=== PATIENT | female | born 1985 | race Caucasian/White ===

== ENCOUNTER 2019-06-05 04:42 | Inpatient (IN) ==
[2019-06-05 02:49] LABS: Amphetamine Screen,Urine Negative ng/mL (Cutoff=1000); Barbiturate Screen,Urine Negative ng/mL (Cutoff=200); Benzodiazepines Screen,Urine Negative ng/mL (Cutoff=200); Cannabinoid Screen,Urine Negative ng/mL (Cutoff = 50); Cocaine Screen,Urine Negative ng/mL (Cutoff= 300); Opiate Screen,Urine Negative ng/mL (Cutoff=300); Phencyclidine Screen,Urine Negative ng/mL (Cutoff=25)
--- NOTE | 2019-06-05 03:57 | OB/GYN History & Physical ---
Date of Encounter: 06/05/19 Time of Encounter: 03:57 Assessment and Plan (1) 39 weeks gestation of Current visit: Yes Status: Acute (2) Carrier of hemochromatosis HFE gene mutation Current visit: Yes Status: Acute (3) Uterine contractions Current visit: Yes Status: Acute Admit to labor and delivery Nubain and epidural as desired GBS negative Anticipate History of Present Illness Chief complaint: contractions HPI: Ms. Ji is a 33 year old female 39+5 days gestation presents to triage with complaints of contractions. Patient started having contractions last night increasing in and duration. Patient reports good movement, and having bloody show. Denies leaking of fluid. care with Dr. Albarado. Transfer of care at 16 weeks. 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 Labs: O+, rubella immune, GBS negative, all other serologies negative. Past Med Surg Social Fam HX - Past Medical History Medical history: no medical history Psychiatric history: anxiety - Past Surgical History Surgical History: no surgical history - Social History Smoking Status: Never smoker Alcohol use: none Drug use: none - Family History Father Family Member Ethnicity: Non- Living Status: Still Living Hx Family Cardiac Disorders: No Hx Family Respiratory Disorders: Yes (asthma) Hx Family Cancer: No Hx Family GI Disorders: No Hx Family Genitourinary Disorders: No Hx Family Endocrine Disorder: No Hx Family Musculoskeletal Disorders: No Hx Family Neuromuscular Disorders: No Hx Family Neurologic Disorders: No Hx Family HEENT Disorders: No Hx Family Autoimmune Disorders: No Hx Family Reproductive Disorders: No Hx Family Psychosocial Disorders: No Hx Family Medical Disorders: No Obstetrical History - Pregnancies : 1 Para: 0 Term: 0 : 0 Ab's: 0 Livin Medications and Allergies 19 Tablet 06/05/19 [History] Allergy/AdvReac Type Severity Reaction Status Date / Time No Known Allergies Allergy Verified 06/05/19 01:52 Exam - Constitutional Constitutional: well developed, well nourished, no acute distress - Neck Neck exam: full ROM - Lungs Respiratory exam: CTAB - Cardiovascular Cardiovascular exam: RRR - Abdomen Abdomen: Present: gravid, non tender - Cervix Dilation: 3 Results All other labs normal. - VTE Reasons for not Prescribing Prophylaxis: Treatment not Indicated - Low risk for VTE
[2019-06-05] MEDS: Ondansetron 4 MG/2 ML VIAL IVP PRN ×2 (04:12→11:22)
[~2019-06-05 04:42] MED LIST: *HR* Nalbuphine 10 MG/ML AMPUL IVP PRN; Famotidine 20 MG/2 ML VIAL IVP PRN; Lidocaine 1% 20 ML MDV INFILT PRN; Metoclopramide 10 MG/2 ML VIAL IVP PRN; Naloxone 0.4 MG/ML INJ IVP PRN; Ringers Solution, Lactated 1,000 ML IVC SCH
[2019-06-05 05:06] LABS: Basophils % 0.1 %; Hemoglobin 13.4 g/dL (11.5-15.4); Immature Granulocytes % 5.5 % (0-4); Lymphocytes # 2.1 K/mcL (0.6-4.6); Lymphocytes % 9.7 %; Mean Corpuscular HGB Conc 32.7 g/dL (31.6-35.5); Mean Corpuscular Hemoglobin 30.2 pg (28.0-33.3); Mean Corpuscular Volume 92.3 fL (83.0-100.0); Mean Platelet Volume 8.5 fL (9.4-12.4); Monocytes # 1.1 K/mcL (0.0-1.3); Monocytes % 5.1 %; Nucleated Red Blood Cells 0.1 /100 WBC (0); Platelet Count 241 K/mcL (140-400); Red Blood Count 4.44 M/mcL (3.82-4.97); Red Cell Distribution Width 14.8 % (11.5-14.5); Segmented Neutrophils % 79.6 %; White Blood Count 21.4 K/mcL (4.3-11.1)
[2019-06-05 05:29] LABS: Platelet Estimate Normal (Normal)
[2019-06-05 05:30] LABS: Polychromasia 1+ (Not Present)
[2019-06-05] MEDS ORDERED: *HR* FentaNYL (PF) 100 MCG/2 ML VIAL ONE (06:08)
[2019-06-05] MEDS ORDERED: Epidural Premix (fent/bupiv) 110 ML EP ONE (06:08)
--- NOTE | 2019-06-05 06:44 | Anesthesia Evaluation PreOp ---
Date of Encounter: 06/05/19 Time of Encounter: 06:42 - Past History Planned Operation: aly Cardiac History: Denies any Significant Hx Pulmonary History: Denies Any Significant HX RESERVOIR ENGINEERING MANAGER History: Denies Any Significant HX Other Medical History: Denies Any Significant HX Anesthesia History: No Prior Anesthetic Complications, Past Anesthesia : Yes (39wks, g1) Alcohol Use: none Drug use: none Medications and Allergies 19 Tablet 06/05/19 [History] Allergy/AdvReac Type Severity Reaction Status Date / Time No Known Allergies Allergy Verified 06/05/19 01:52 - Meds/Allergy Pre-op Review Medications Reviewed: Yes Allergies Reviewed: Yes Beta Blockers on Current Med List: No Anesthesia Results - Labs 06/05/19 04:51 Anesthesia Exam O2 Sat Height 1.52 m Weight 87.317 kg Height: 60 Weight: 87 - HEENT Pupil (Motor): Pupils equal Mallampati: II Teeth: Normal Oral Opening: Greater than 3 - RESERVOIR ENGINEERING MANAGER LOC: Oriented RESERVOIR ENGINEERING MANAGER Motor: Normal RUE, Normal LUE, Normal RLE, Normal LLE, Normal Face RESERVOIR ENGINEERING MANAGER Sensory: Normal: RUE, LUE, RLE, LLE, Face - Cardiac Rhythm: Regular Murmur: None JVD: No Carotid Bruit: No - Pulmonary Breath Sounds: bilateral Clear Respiratory Effort: Symmetrical Anesthesia Assess/Plan ASA Score: 2 Level of consciousness: Cooperative Anesthetic Plan: Epidural Monitoring Plan: Standard Monitors
[2019-06-05] MEDS ORDERED: Epidural Premix (fent/bupiv) 110 ML EP SCH (06:45)
--- NOTE | 2019-06-05 06:49 | Anesthesia Procedures ---
Date of Encounter: 06/05/19 Time of Encounter: 06:12 ([id number]) Procedures: Anesthesia - Epidural/Spinal Patient ID/Chart reviewed: Yes Patient examined: Yes OB Eval: Gestational age: 39 OB Eval: : 1 OB Eval: Contractions: Non-stressed pattern Consent Obtained: Yes Supplemental Oxygen: None/Room Air Site Prep: Aseptic Technique Patient position: upright Local Anesthetic: Lidocaine 1% Amount of Local Anesthetic used: 2 Touhy Needle Gauge: 18 Touhy Needle Depth (cm): 6 Catheter Depth at Skin (cm): 12 Test Dose (1.5% Lido + Epi): Volume given (mls): 3 Test Dose Result: Negative Loading Dose: Fentanyl (mcg): 100 Loading Dose: Other: 5ml 0.2% ropivicaine Loading Dose Administered: Thru Touhy Needle Infusion Med: 0.125% Bupivacaine w/ 2 mcg/ml Fentanyl Infusion Rate (mls/hr): [address]: Tegaderm Interspace Used: L3-L4 Loss of Resistance (RAYMUNDO): Yes Blood: No CSF: No Paresthesia: No Procedure: Strict asepsis, one attempt wthout any redirections. Good RAYMUNDO at 6cm, bolus through needle, catheter to 12cm. No parasthesias, no heme, no CSF. FHR unchanged.
[2019-06-05] MEDS ORDERED: Famotidine 20 MG/2 ML VIAL IVP STA (08:08)
--- NOTE | 2019-06-05 08:32 | OB Labor Progress Note ---
Date of Encounter: 06/05/19 Time of Encounter: 08:30 Labor Progress Note - Subjective Subjective: Patient resting comfortably after epdiural placement - Vital Signs Vital Signs: WNL - Cervix Cervix: 7/90/-1 - Heart Tones Heart Tones: FHR 120 bpm, moderate variability, +15x15 accels, no decels. - Bacliff Bacliff: 2-4 minutes - Interventions Interventions: SVE AROM for moderate amount of clear fluid. IUPC placed for accurate contraction monitoring. - Plan Physician notified: Yes Physician notified details: Dr. Calhoun aware of SVE Plan: Continue frequent position changes with peanut ball. Begin Pitocin augmentation to maintain MVU's >200 Anticipate
[2019-06-05] MEDS ORDERED: Oxytocin 20 units/ LR 1000 mL 20 UNIT/1,000 ML BAG IVC SCH (08:45)
[2019-06-05] MEDS ORDERED: Ropivacaine/PF 0.2% 20 ML VIAL ONE (16:38)
--- NOTE | 2019-06-05 16:53 | OB Labor Progress Note ---
Date of Encounter: 06/05/19 Time of Encounter: 16:51 Labor Progress Note - Subjective Subjective: Patient is extremely uncomfortable with contractions. - Vital Signs Vital Signs: WNL - Cervix Cervix: 7/90/-2 - Heart Tones Heart Tones: FHR 140 bpm, moderate variability, no accels, early decelerations. - [place]: q 2 min - Interventions Interventions: Epidural bolus given for pain control. - Plan Plan: Continue Pitocin augmentation Anticipate
--- NOTE | 2019-06-05 19:20 | OB Labor Progress Note ---
Date of Encounter: 06/05/19 Time of Encounter: 19:18 Labor Progress Note - Subjective Subjective: Patient comfortable with epidural in place. - Cervix Cervix: 7/90/-1 - Heart Tones Heart Tones: FHR 130 bpm, moderate variability, +15x15 accels, early decels. - Phelps Phelps: Q2-3 min - Interventions Interventions: SVE Position changed to Walcher's. Possible fetus is OP presentation - Plan Plan: Continue Pitocin augmentation Frequent position changes with peanut ball after Walcher's position. Anticipate Discussed option with patient since she has had no cervical change in several hours. She states a would be her absolute last option as long as the baby is tolerating labor.
--- NOTE | 2019-06-05 22:23 | OB Labor Progress Note ---
Date of Encounter: 06/05/19 Time of Encounter: 22:09 Labor Progress Note - Subjective Subjective: Patient resting comfortably in bed. - Cervix Cervix: 7/90/-1 Unchanged from early AM - Heart Tones Heart Tones: 140 bpm, moderate variability, +15x15 accels, occasional late and early decelerations. - [place] Saranap: 3-6 - Interventions Interventions: SVE, multiple position changes attempted. Throughout the day, there have been several episodes of prolonged decelerations. Position change has resolved them each time. Pitocin has needed to be discontinued multiple times because of the decelerations. MVU's had been adequate when Pitocin was running continuously. At this time, patient SVE is unchanged since early this AM. head position feels acynclitic or OP. Dr. Calhoun notified of findings. Discussed option with patient due to arrest of dilation regardless of adequate labor. She and her discussed and agree to proceed with at this time. Dr. Calhoun notified. - Plan Physician notified: Yes Physician notified details: Dr. Calhoun aware of patient request to proceed with due to arrest of dilation. Plan: Stop Pitocin Prepare for section.
[2019-06-05] MEDS ORDERED: CeFAZolin Premix DUPLEX 2,000 MG/50 ML BAG IVPB ONE (22:24)
[2019-06-05] MEDS ORDERED: Lidocaine -MPF 2% 5 ML VIAL ONE (23:27)
[2019-06-05] MEDS ORDERED: *HR* Oxytocin 10 UNIT/ML VIAL IM ONE (23:49)
[2019-06-05] MEDS ORDERED: Ondansetron 4 MG/2 ML VIAL ONE (23:49)
[2019-06-05] MEDS ORDERED: Acetaminophen IV 1,000 MG/100 ML INFUS..BTL IVPB ONE (23:57)
[2019-06-05] MEDS ORDERED: *HR* HYDROmorphone (PF) 1 MG/ML SYRINGE IVP PRN (23:57)
[2019-06-05] MEDS ORDERED: *HR* OxyCODONE Immed Rel 5 MG TABLET PO PRN (23:57)
[2019-06-06] MEDS ORDERED: *HR* Morphine Sulfate/PF 10 MG/10 ML AMPUL ONE (00:04)
[2019-06-06] MEDS ORDERED: Lidocaine -MPF 2% 5 ML VIAL ONE (00:23)
[2019-06-06] MEDS ORDERED: *HR* FentaNYL (PF) 100 MCG/2 ML VIAL ONE (00:24)
--- NOTE | 2019-06-06 00:53 | OB/GYN Procedure Note ---
Section - Date of procedure: 06/06/19 Preop diagnosis: arrest of dilation, category 2 FHT tracing Post-op diagnosis: same Procedure: primary low transverse Surgeon: Joan Barraza Blood Loss: 500 Was there an fws faculty assistant present: Yes Verification Specialist: Callie Paredes Anesthesia Type: Epidural section complications: none Disposition: L&D Recovery Room Specimens: Cord segment, Cord blood - Narrative Narrative: The patient was taken to the operating room where epidural anesthesia was found to be adequate. The patient was prepped and draped in the usual sterile fashion in the dorsal supine position with a left-esteban tilt. A Pfannenstiel skin incision was made with the scalpel and carried through to the underlying layer of fascia. The fascia was incised in the midline and extended laterally. Louisa clamps were used to elevate the superior aspect of the fascial incision, which was elevated, and the underlying rectus muscles were dissected off bluntly and using Sainz scissors. Attention was then turned to the inferior aspect of the fascial incision, which in similar fashion was grasped with Louisa clamps, elevated, and the underlying rectus muscles were dissected off bluntly and using Sainz scissors. The rectus muscles were dissected in the midline. The peritoneum was bluntly dissected, entered, and extended superiorly and inferiorly with good visualization of the bladder. The bladder blade was inserted. The lower uterine segment was incised in a transverse fashion using the scalpel and extended using manual traction. Clear fluid was noted. The infant was subsequently delivered atraumatically. The nose and mouth were bulb suctioned. The cord was clamped and cut. The was subsequently handed to the awaiting nursery nurse. The placenta was removed spontaneously intact with a 3-vessel cord noted. The uterus was exteriorized and cleared of all clots and debris. The uterine incision was repaired in 2 layers using 0 vicryl suture. Hemostasis was visualized. The uterus was returned to the abdomen. The uterine incision was reexamined and was noted to be hemostatic. The fascia was closed with 0 Vicryl, the subcutaneous layer was closed with 3-0 vicryl, and the skin was closed with 4-0 vicryl. Sponge, lap, and instrument counts were correct x2. The patient was stable at the completion of the procedure and was subsequently transferred to the recovery room in stable condition.
[2019-06-06] MEDS ORDERED: *HR* OxyCODONE/APAP 5/325 TABLET PO PRN (03:38)
[2019-06-06] MEDS ORDERED: Sennosides 8.6 MG TABLET PO PRN (03:38)
[2019-06-06] MEDS ORDERED: Simethicone 80 MG TAB.CHEW PO PRN (03:38)
[2019-06-06] MEDS ORDERED: Ondansetron 4 MG/2 ML VIAL IVP PRN (03:38)
[2019-06-06] MEDS ORDERED: Metoclopramide 10 MG/2 ML VIAL IVP PRN (03:38)
[2019-06-06] MEDS ORDERED: Oxytocin 20 units/ LR 1000 mL 20 UNIT/1,000 ML BAG IVC SCH (03:38)
[2019-06-06] MEDS ORDERED: *HR* OxyCODONE Immed Rel 5 MG TABLET PO PRN (03:38)
[2019-06-06] MEDS ORDERED: Ibuprofen 600 MG TABLET PO PRN (03:38)
--- NOTE | 2019-06-06 06:41 | Anesthesia Evaluation Post Op ---
Date of Encounter: 06/06/19 Time of Encounter: 03:00 - Vital Signs Vital Signs: Vital Signs Temperature 98.8 F 06/06/19 03:15 Pulse Rate 108 06/06/19 03:15 Respiratory Rate 14 06/06/19 03:15 Blood Pressure 116/72 06/06/19 03:15 O2 Sat by Pulse Oximetry 96 06/06/19 03:15 Temperature 98.9 F 06/06/19 05:15 Pulse Rate 105 06/06/19 05:15 Respiratory Rate 14 06/06/19 05:15 Blood Pressure 127/80 06/06/19 05:15 O2 Sat by Pulse Oximetry 95 06/06/19 05:15 - Lungs Lungs: Clear Ascult./Percussion - Airway Airway: Non-obstructed - Cardiovascular Regular Rate - Mental Status Mental Status: Alert & Oriented, Answers Appropriately - Pain Pain Scale: 3 Pain Scale used: Numeric (1 - 10) - Nausea Vomiting Nausea Vomiting: Not Present - Hydration Hydration: NPO, Dooley catheter - Discharge PostOp Status: Transfer Patient to floor
[2019-06-06] MEDS: metroNIDAZOLE 500 MG TABLET PO SCH ×3 (08:41→20:14)
[2019-06-06] MEDS: Prenatal Vit/FA 1 EACH TABLET PO SCH (08:41)
[2019-06-06] MEDS: cephALEXin 500 MG CAPSULE PO SCH ×3 (08:41→20:15)
[2019-06-06 08:57] LABS: Hematocrit 33.1 % (35.3-44.9); Mean Corpuscular HGB Conc 32.6 g/dL (31.6-35.5); Mean Corpuscular Hemoglobin 30.2 pg (28.0-33.3); Mean Corpuscular Volume 92.5 fL (83.0-100.0); Mean Platelet Volume 8.4 fL (9.4-12.4); Platelet Count 245 K/mcL (140-400); Red Blood Count 3.58 M/mcL (3.82-4.97); Red Cell Distribution Width 15.1 % (11.5-14.5); White Blood Count 24.3 K/mcL (4.3-11.1)
[2019-06-06 09:06] LABS: Hemoglobin 10.8 g/dL (11.5-15.4)
[2019-06-06] MEDS ORDERED: Ketorolac 30 MG/ML VIAL IVP PRN (09:40)
--- NOTE | 2019-06-06 09:44 | OB/GYN Progress Note ---
Date of Encounter: 06/06/19 Time of Encounter: 09:41 - Assessment and Plan (1) Status post primary low transverse section Current Visit: Yes Status: Acute Continue routine postop/ care ambulation encouraged (2) Breast feeding status of mother Current Visit: Yes Status: Acute support prn Subjective - Subjective Principal diagnosis: Postop day 1 primary c/s Interval history: Patient is postop/ day 1. Patient had a primary c/s for failure to progress. Patient is breast feeding female infant and meeting day 1 milestones. Will stop Motrin and order Toradol for better pain control due to extreme nausea with narcotics. Patient reports: appetite normal, voiding normally, ambulating normally [place]: doing well, nursing well Objective - Vital Signs Latest vital signs: Vital Signs Temp Pulse Resp BP Pulse Ox 06/06/19 07:40 97.5 F L 109 16 124/82 99 06/06/19 06:15 98.5 F 101 14 118/74 96 06/06/19 05:15 98.9 F 105 14 127/80 95 06/06/19 04:15 98.5 F 109 14 128/78 94 06/06/19 03:45 97.5 F L 94 14 115/72 96 06/06/19 03:15 98.8 F 108 14 116/72 96 Intake and Output 06/05/19 06/06/19 06/06/19 23:59 07:59 15:59 Intake Total 800 / 800 Output Total 850 / 850 Balance -50 / -50 Intake: Oral 800 / 800 Output: Catheter 850 / 850 - Exam Lungs: bilateral: normal Chest: Normal S1, Normal S2 Extremities: Present: normal Abdomen: Present: normal appearance, soft Incision: Present: normal, dry, dressed (medipore dressing and binder) Uterus: Present: normal, firm Fundal Height: 3 (U/3) - Labs Labs: Laboratory Results - last 24 hr 06/06/19 08:36 WBC 24.3 H RBC 3.58 L Hgb 10.8 L D Hct 33.1 L MCV 92.5 MCH 30.2 MCHC 32.6 RDW 15.1 H Plt Count 245 MPV 8.4 L
[2019-06-06 10:29] LABS: Lymphocytes # 1.7 K/mcL (0.6-4.6); Monocytes # 1.5 K/mcL (0.0-1.3); Neutrophils # 21.1 K/mcL (1.6-8.9)
[2019-06-06 10:31] LABS: Platelet Estimate Normal (Normal); Polychromasia 1+ (Not Present)
[2019-06-06] MEDS ORDERED: Lanolin 7 G OINT...G. TP PRN (20:46)
[2019-06-07] MEDS: Prenatal Vit/FA 1 EACH TABLET PO SCH (08:03)
[2019-06-07] MEDS: metroNIDAZOLE 500 MG TABLET PO SCH (08:03)
[2019-06-07] MEDS: cephALEXin 500 MG CAPSULE PO SCH (08:03)
[2019-06-07 08:14] VITALS: BP 116/68
[2019-06-07] MEDS ORDERED: MOM Conc 10 ML UD.LIQ PO ONE (09:49)
[2019-06-07 10:13] LABS: Basophils # 0.1 K/mcL (0.0-0.2); Basophils % 0.3 %; Hematocrit 29.5 % (35.3-44.9); Hemoglobin 9.5 g/dL (11.5-15.4); Immature Granulocytes % 3.9 % (0-4); Lymphocytes # 1.9 K/mcL (0.6-4.6); Lymphocytes % 8.4 %; Mean Corpuscular HGB Conc 32.2 g/dL (31.6-35.5); Mean Corpuscular Hemoglobin 30.2 pg (28.0-33.3); Mean Corpuscular Volume 93.7 fL (83.0-100.0); Mean Platelet Volume 8.4 fL (9.4-12.4); Monocytes # 0.6 K/mcL (0.0-1.3); Monocytes % 2.7 %; Neutrophils # 18.8 K/mcL (1.6-8.9); Platelet Count 242 K/mcL (140-400); Red Blood Count 3.15 M/mcL (3.82-4.97); Red Cell Distribution Width 15.3 % (11.5-14.5); Segmented Neutrophils % 84.7 %; White Blood Count 22.2 K/mcL (4.3-11.1)
--- NOTE | 2019-06-07 10:28 | Discharge Summary ---
Date of Encounter: 06/07/19 Time of Encounter: 10:23 - Discharge Diagnosis (1) Status post primary low transverse section Priority: Primary Status: Acute Comments: S/P delivery day 2 Pain is well controlled Lochia is light and without clots VSS Tolerating regular diet, passing flatus Voiding without difficulty Breast feeding Discharge home today - Discharge Medications Prescriptions: New Breast Pump [BREAST PUMP] 1 each .ROUTE AD #1 each Docusate [Colace] 100 mg PO BID #30 capsule Ferrous Sulfate 325 mg PO DAILY #90 tablet metroNIDAZOLE [Flagyl] 500 mg PO TID #21 tablet Simethicone [Gas-X] 80 mg PO TID PRN tab.chew PRN Reason: Dyspepsia Ibuprofen [Ibu] 600 mg PO Q6H #30 tablet cephALEXin [Keflex] 500 mg PO TID #21 capsule Lanolin [Lansinoh] 1 appl TP Q4HR PRN oint...g. PRN Reason: Sore Nipples Acetaminophen [Pain Reliever] 500 mg PO Q6H #60 tablet Continued 19 Tablet Home Medications: 19 Tablet 06/05/19 [History] Acetaminophen [Pain Reliever] 500 mg PO Q6H #60 tablet 06/07/19 [Rx] Breast Pump [BREAST PUMP] 1 each .ROUTE AD #1 each 06/07/19 [Rx] Docusate [Colace] 100 mg PO BID #30 capsule 06/07/19 [Rx] Ferrous Sulfate 325 mg PO DAILY #90 tablet 06/07/19 [Rx] Ibuprofen [Ibu] 600 mg PO Q6H #30 tablet 06/07/19 [Rx] Lanolin [Lansinoh] 1 appl TP Q4HR PRN oint...g. 06/07/19 [Rx] Simethicone [Gas-X] 80 mg PO TID PRN tab.chew 06/07/19 [Rx] cephALEXin [Keflex] 500 mg PO TID #21 capsule 06/07/19 [Rx] metroNIDAZOLE [Flagyl] 500 mg PO TID #21 tablet 06/07/19 [Rx] Allergies/Adverse Reactions: Allergy/AdvReac Type Severity Reaction Status Date / Time No Known Allergies Allergy Verified 06/05/19 01:52 Data Procedures and tests throughout hospitalization: Laboratory Tests 06/05/19 06/05/19 06/06/19 02:20 04:51 08:36 WBC 21.4 H 24.3 H RBC 4.44 3.58 L Hgb 13.4 10.8 L D Hct 41.0 33.1 L MCV 92.3 92.5 MCH 30.2 30.2 MCHC 32.7 32.6 RDW 14.8 H 15.1 H Plt Count 241 245 MPV 8.5 L 8.4 L Immature Gran % 5.5 H Seg Neutrophils % 79.6 77.0 Band Neutrophils % 10.0 H Lymphocytes % 9.7 7.0 Monocytes % 5.1 6.0 Eosinophils % 0.0 Basophils % 0.1 Neutrophils # 17.0 H 21.1 H Lymphocytes # 2.1 1.7 Monocytes # 1.1 1.5 H Eosinophils # 0.0 Basophils # 0.0 Nucleated RBCs/100 WBC 0.1 H Platelet Estimate Normal Normal Polychromasia 1+ A 1+ A Urine Opiates Screen Negative Ur Buprenorphine Scrn Negative Ur Barbiturates Screen Negative Ur Phencyclidine Scrn Negative Ur Amphetamines Screen Negative U Benzodiazepines Scrn Negative Urine Cocaine Screen Negative U Marijuana (THC) Screen Negative Ur Drug Screen Interp See Below 06/07/19 09:45 WBC 22.2 H RBC 3.15 L Hgb 9.5 L Hct 29.5 L MCV 93.7 MCH 30.2 MCHC 32.2 RDW 15.3 H Plt Count 242 MPV 8.4 L Immature Gran % 3.9 Seg Neutrophils % 84.7 Band Neutrophils % Lymphocytes % 8.4 Monocytes % 2.7 Eosinophils % 0.0 Basophils % 0.3 Neutrophils # 18.8 H Lymphocytes # 1.9 Monocytes # 0.6 Eosinophils # 0.0 Basophils # 0.1 Nucleated RBCs/100 WBC Platelet Estimate Polychromasia Urine Opiates Screen Ur Buprenorphine Scrn Ur Barbiturates Screen Ur Phencyclidine Scrn Ur Amphetamines Screen U Benzodiazepines Scrn Urine Cocaine Screen U Marijuana (THC) Screen Ur Drug Screen Interp Labs on day of discharge: Labs from last 24 hours 06/07/19 06/06/19 09:45 08:36 WBC 22.2 H RBC 3.15 L Hgb 9.5 L Hct 29.5 L MCV 93.7 MCH 30.2 MCHC 32.2 RDW 15.3 H Plt Count 242 MPV 8.4 L Immature Gran % 3.9 Seg Neutrophils % 84.7 77.0 Band Neutrophils % 10.0 H Lymphocytes % 8.4 7.0 Monocytes % 2.7 6.0 Eosinophils % 0.0 Basophils % 0.3 Neutrophils # 18.8 H 21.1 H Lymphocytes # 1.9 1.7 Monocytes # 0.6 1.5 H Eosinophils # 0.0 Basophils # 0.1 Platelet Estimate Normal Polychromasia 1+ A Date of admission: 06/05/19 04:42 Primary care physician: PCP NONE Discharging clinician: Chaparrita Andrews Anticipated date of discharge: 06/07/19 - Patient Status Disposition: Home, Self-Care Condition: Good Functional capacity at discharge: independent ambulation Overall status at discharge: patient is progressing back to baseline - Discharge Instructions Follow Up With: NONE,PCP [Primary Care Provider] - Joan Calhoun MD [Partnered Physician] - - Diet and Activity Activity: increase activity as tolerated Diet: regular diet Hospital Course Reason for admission: IUP at term Delivery: section Episiotomy: none Laceration: none Other procedures: none complications: none Discharge diagnosis: IUP at term delivered baby: female Time Attestation: Total time spent providing and/or coordinating discharge services: Time Spent: Less than 30 minutes - VTE Reasons for not Prescribing Prophylaxis: Treatment not Indicated - Low risk for VTE Documentation of Mechanical Device: Intermittent pneumatic compression device Exam - Constitutional Vitals: Temp Pulse Resp BP Pulse Ox 100.5 F H 111 16 116/68 100 06/07/19 08:13 06/07/19 08:13 06/07/19 09:04 06/07/19 08:13 06/06/19 20:30 General appearance IM: cooperative, A&O X 3, pleasant - Respiratory Respiratory exam: Present: CTAB - Cardiovascular Cardiovascular exam IM: Present: RRR, +S1, +S2 - GI/Abdominal Incision: normal, dry, intact (steri strips c/d/i) - Rectal Rectal exam: deferred - Uterine Tone: Firm Uterus Position: At Umbilicus, Midline - Extremities Exam Extremities exam IM: Present: normal capillary refill, normal inspection, radial pulses palpable and symmetrical - Neurological Exam Neurological exam: alert, oriented X3, reflexes normal
[2019-06-07] MEDS ORDERED: Acetaminophen 325 MG TABLET PO PRN (11:07)
== END 2019-06-07 11:28 | disposition home or self-care (01) | DRG 788 ==
LOC: 1NENULAB → 1NENUOBS 06-06 03:38
PROVIDERS: ADMIT Advanced Practice Midwife; ATTEND Advanced Practice Midwife